=== PATIENT | female | born 1940 | race Caucasian/White ===

== ENCOUNTER 2017-02-14 18:03 | Emergency (ER) | payer OTHER ==
--- NOTE | ~2017-02-14 | CT71 ---
[facility] A Service [facility] RADIOLOGY TEXT RESULTS PATIENT: OLINDA DUNHAM LOCATION: [facility] : 36 UNIT #: [id number] AGE: [address]: Rosa Anderson MD SEX: F ORDER DR: [id number] [facility] [address] [place], [place] [address] [id number] MR#: [id number] Acc #: [id number] NAME: OLINDA DUNHAM : 1940 SEX: F STUDY DATE/TIME: 02/14/2017 16:54 UNIT: [facility] ROOM: STUDY DESCRIPTION: CT Head Wo Contrast Attending Physician: Rosa Anderson M.D. Referring Physician: Jonas Reyes Jr., M.D. Ordering Physician: Rosa Anderson M.D. Primary Care Physician: Jonas Reyes Jr., M.D. MEDICAL IMAGING REPORT This report is preliminary unless electronic signature is present EXAM CT brain without contrast media, 02/14/17 COMPARISON STUDIES 01/04/17 HISTORY Fell this morning. On blood thinners. Mild headache TECHNIQUE This CT exam was performed with one or more of the following radiation dose reduction techniques: automatic exposure control, adjustment of mA and/or kV according to patient size, and iterative reconstruction. Axial imaging of the brain was performed without contrast media. FINDINGS There is generalized enlargement of the ventricles and CSF-containing spaces. No intra or extraaxial mass lesions, fluid collections or mass effect are seen. No focal areas of low attenuation or evidence of intracranial hemorrhage. There are atherosclerotic calcifications in the vertebral arteries and carotid siphons. The bone windows are reviewed. No fractures are identified. There is a small radiopaque density in the scalp over the left occipital region unchanged from prior studies. CONCLUSION 1. Generalized atrophy. No acute intracranial findings. No evidence of hemorrhage. 2. No fracture is identified. 3. Small radiopaque foreign body in the scalp over the left occipital region, unchanged from December 2016. [facility] A Service [facility] RADIOLOGY TEXT RESULTS PATIENT: OLINDA DUNHAM LOCATION: [facility] : 36 UNIT #: [id number] AGE: [address]: Rosa Anderson MD SEX: F ORDER DR: Dictated by... Jonas Benites M.D. THIS IS AN ELECTRONICALLY VERIFIED REPORT Jonas Benites M.D. at 02/15/2017 10:35 AM Avi TD: 02/14/2017 22:58 JOB #: [id number] MEDICAL IMAGING REPORT Page 1 of 1 COPY
[2017-02-14 16:50] LABS: BASOPHIL# 0.1 X10e3 (0-0.3); BASOPHIL% 0.7 % (0-2.5); EOSINOPHIL# 0.4 X10e3 (0-0.7); EOSINOPHIL% 4.5 % (0.0-7.0); HEMATOCRIT 29.1 % (35.0-45.0); HEMOGLOBIN 9.1 gm/dL (12.0-16.0); MEAN CELL VOLUME 83.8 FL (83-96); MEAN CORPUSCULAR HEMOGLOBIN 26.2 PG (28-34); MEAN CORPUSCULAR HGB CONC 31.3 g/dL (30-36); MEAN PLATELET VOLUME 8.2 FL (6.5-11.5); MONOCYTE# 0.9 X10e3 (0-1.0); MONOCYTE% 8.8 % (3.0-12.0); NEUTROPHIL# 5.3 X10e3 (1.5-7.1); PLATELET COUNT 379 X10e3 (140-420); RED BLOOD COUNT 3.48 X10e (3.90-5.30); RED CELL DISTRIBUTION WIDTH 15.5 % (11.0-15.5); WHITE BLOOD COUNT 9.7 X10e3 (4.0-10.5)
[2017-02-14 16:53] LABS: DIFF IND YES
[2017-02-14 17:15] LABS: BLOOD UREA NITROGEN 10 mg/dL (9-23); CALCIUM SERUM 7.8 mg/dL (8.4-10.2); CARBON DIOXIDE 28 mmol/L (22-31); CHLORIDE 103 mmol/L (100-111); CREATININE SERUM 0.8 mg/dL (0.6-1.4); GLOM FILT RATE Estimated ABOVE60 mL/min (>60); GLUCOSE FASTING 109 mg/dL (70-110); POTASSIUM 3.6 mmol/L (3.5-5.1); SODIUM 137 mmol/L (135-145)
[2017-02-14 17:17] LABS: INR 3.7; PARTIAL THROMBOPLASTIN TIME 43.1 SECONDS (23.5-31.3); PROTHROMBIN TIME (PATIENT) 40.8 SECONDS (9.6-11.5)
[2017-02-14 17:42] LABS: ANISOCYTOSIS SL; STOMATOCYTE PRESENT
[2017-02-14 17:43] LABS: PLATELET ESTIMATE NORMAL (NORMAL)
[~2017-02-14 18:03] MED LIST: ACETAMINOPHEN PO; ALBUTEROL 0.5ML INH; ALDACTONE25 MG PO; ALEVE220 M1 PO; ALLERCLEAR10 MG PO; ALTACE10 M2 PO; AMLODIPINE BESYL5 MG PO; AMLODIPINE-BEN1 EAC5 PO; ARTIFICIAL TEAR15 M3 OU; ASPIRIN EC81 M1 PO; ASPIRIN81 M1 PO; ASPIRIN81 M2 PO; ATIVAN0.5 M1 PO; AUGMENTIN PO; B COMPLEX1 CA1 PO; B-121000 MC1 PO; BUSPAR15 MG PO; BYSTOLIC5 MG PO; CALCIUM 600 +1 EAC9 PO; CELEXA PO; CILOXAN 0.3% O2.5 ML OS; CLARITIN10 M3 PO; CLINDAMYCIN PH600 MG PO; COLACE PO; COREG6.25 MG PO; COUMADIN PO; COUMADIN1 MG PO; COUMADIN2.5 MG PO; D-20002000 UNIT PO; DEPAKOTE125 MG PO; DYAZIDE 37.5/251 CAP PO; FIORICET 50-321 EACH PO; FLOMAX0.4 M1 PO; FLORASTOR250 M1 PO; GLYCOLAX119 GM PO; HYDRALAZINE HC100 MG PO; HYDROCHLOROTHIA25 MG PO; HYDROCODON-ACE1 EAC3 PO; HYDROCODON-ACE1 EAC7 PO; HYDROCODONE-APA1 T49 PO; K-DUR20 ME1 PO; K-DUR20 ME2 PO; LASIX20 MG PO; LEXAPRO PO; LIPITOR PO; LOPRESSOR PO; LORCET 10-6501 EACH PO; LORCET 10/650 T1 TAB PO; LORTAB 10-5001 EACH PO; MELATONIN3 M4 PO; MIRALAX17 G1 PO; MIRALAX17 GM PO; NEURONTIN100 MG PO; NEXIUM PO; NIFEREX-150 CAP1 CAP PO; NILSTAT PO; NORCO 5/325 TAB1 TAB PO; NORVASC PO; PACERONE PO; PEPCID AC20 M2 PO; PEPTO-BISM525 MG/15 PO; PERCOCET 10/3251 TAB PO; PHENERGAN25 MG PO; POTASSIUM CHLOR8 ME2 PO; PRADAXA150 MG PO; PROTONIX PO; PROZAC40 MG PO; REMERON PO; REMERON15 MG PO; RESTORIL15 MG PO; SALINE45 ML NS; SENNA LAXATIVE1 TAB PO; SENNA PO; STOOL SOFTENER50 MG PO; SYMBICORT INH; TRIAMTERENE-HCT1 TA6 PO; VITAMIN D-32000 UNI2 PO; VITAMIN D50000 UNIT PO; VIVELLE TOP; VIVELLE-DO1 PATCH.B2 TD; ZOCOR20 MG PO; ZOFRAN PO; ZOLOFT PO
== END 2017-02-14 21:10 | disposition home or self-care (01) ==
LOC: CED 18:03
PROVIDERS: Emergency Medicine
DX: R79.1 Abnormal coagulation profile (principal); I10 Essential (primary) hypertension; Z90.49 Acquired absence of other specified parts of digestive tract; Z90.89 Acquired absence of other organs; Z88.2 Allergy status to sulfonamides; Z79.82 Long term (current) use of aspirin; Z79.899 Other long term (current) drug therapy
CPT/HCPCS: 36415; 70450; 80048; 85025; 85610; 85730; 99284